=== PATIENT | female | born 1960 | race Caucasian/White ===

== ENCOUNTER 2017-03-06 09:45 | Emergency (ER) | payer OTHER ==
[~2017-03-06] VITALS: Ht 157.5 cm; Wt 70.0 kg
[2017-03-06 09:48] VITALS: BP 160/92; PULSE 92; RESP 14; TEMP 98.4; O2SAT 99
--- NOTE | 2017-03-06 10:12 | PD ---
HPI Chief Complaint: Oral / Dental Pain or Problem Time Seen by Provider: 10:10 Travel History International Travel<30 days: No Contact w/Intl Traveler<30days: No History of Present Illness HPI 56-year-old female presents the emergency department visiting from [place], arriving yesterday comes in with increasing pain and swelling to the left upper jaw and pain on the #14 tooth. Patient states she was chewing gum may have "hit the tooth wrong" 2 days ago. She now has increased pain and swelling. She denies fever, chills, difficulty swallowing or other symptoms. She is allergic to codeine and penicillin. Patient has been taking ibuprofen and Tylenol for the discomfort. Pain currently is about a 3 out of 10. PFSH Past Medical History ?: Not Past Surgical History Hysterectomy: Yes Social History Alcohol Use: Yes Tobacco Use: No Substance Use: No Allergies-Medications (Allergen,Severity, Reaction): Coded Allergies: Codeine (Verified Allergy, Severe, 03/06/17) Penicillin (Verified Allergy, Severe, 03/06/17) Review of Systems Except as stated in HPI: all other systems reviewed are Neg General / Constitutional: No: Fever Eyes: No: Visual changes HENT: Positive: Dental Difficulties, No: Headaches, Vertigo, Lightheadedness, Sore Throat, Rhinitis, Rhinorrhea, Congestion, Nosebleed, Neck Stiffness, Neck Pain, Ear Discharge, Earache Cardiovascular: No: Chest Pain or Discomfort Respiratory: No: Shortness of Breath Gastrointestinal: No: Abdominal Pain Genitourinary: No: Dysuria Musculoskeletal: No: Pain Skin: No Rash Neurologic: No: Weakness Psychiatric: No: Depression Endocrine: No: Polydipsia Hematologic/Lymphatic: No: Easy Bruising Physical Exam Narrative GENERAL: Patient appears no acute distress. SKIN: Warm and dry. Normal color. Normal turgor. HEAD: Atraumatic. Normocephalic. Patient is obvious swelling of the left upper cheek with loss of the buccal fold. Patient has palpable sore area over the 14 to this. EYES: Pupils equal and round. No scleral icterus. No injection or drainage. ENT: No nasal bleeding or discharge. Mucous membranes pink and moist. No obvious dental injury or drainage. Localized swelling of the base of the #14 tooth. Pharynx is clear. Airway is patent. Uvula is midline. NECK: Trachea midline. Supple nontender. CARDIOVASCULAR: Regular rate and rhythm. RESPIRATORY: No accessory muscle use. Clear to auscultation. Breath sounds equal bilaterally. GASTROINTESTINAL: Abdomen soft, non-tender, nondistended. Hepatic and splenic margins not palpable. MUSCULOSKELETAL: Extremities without clubbing, cyanosis, or edema. No obvious deformities. NEUROLOGICAL: Awake and alert. No obvious cranial nerve deficits. Motor grossly within normal limits. Five out of 5 muscle strength in the arms and legs. Normal speech. PSYCHIATRIC: Appropriate mood and affect; insight and judgment normal. Data Data Last Documented VS Vital Signs Date Time Temp Pulse Resp B/P Pulse Ox O2 Delivery O2 Flow Rate FiO2 03/06/17 09:48 98.4 92 14 160/92 99 Orders Clindamycin (Cleocin) (03/06/17 10:15) [facility] Medical Decision Making Medical Screen Exam Complete: Yes Emergency Medical Condition: Yes Differential Diagnosis Dental pain. Dental Caries. Dental abscess. Narrative Course Patient is medically stable at time of exam. Patient is given her first dose of clindamycin 300 mg by mouth now. Patient is continued on clindamycin 300 mg 4 times a day for 7 days. Patient is given a prescription for ibuprofen 600 mg 4 times a day #40. Patient is given a prescription for acetaminophen 500 mg 2 tabs every 6 hours when necessary #60. Patient is instructed to use warm compresses to the area frequently. Patient follow with her dentist upon returning to [place] or return to emergency Department with worsening symptoms as needed. Diagnosis Primary Impression: Dental abscess Referrals: Dentist Patient Instructions: Dental Abscess (ED), General Instructions Additional Instructions: Patient is given her first dose of clindamycin 300 mg by mouth now. Patient is continued on clindamycin 300 mg 4 times a day for 7 days. Patient is given a prescription for ibuprofen 600 mg 4 times a day #40. Patient is given a prescription for acetaminophen 500 mg 2 tabs every 6 hours when necessary #60. Patient is instructed to use warm compresses to the area frequently. Patient follow with her dentist upon returning to [place] or return to emergency Department with worsening symptoms as needed. Med/Other Pt SpecificInfo: Prescription(s) given Scripts Ibuprofen 600 Mg [id number] Mg PO Q6H PRN (Pain/Inflammation) #40 TAB Prov:Osmel Ca MD 03/06/17 Clindamycin 150 Mg [id number] Mg PO Q6H 7 Days Prov:Osmel Ca MD 03/06/17 Acetaminophen (Non-Aspirin Pain Relief ES)500 Mg Tab1,000 Mg PO Q6HR PRN (PAIN) #60 TAB Prov:Osmel Ca MD 03/06/17 Disposition: 01 DISCHARGE HOME Condition: Stable Tez Reeder Mar 06, 2017 10:12
[2017-03-06] MEDS ORDERED: NON-500T13 PO (10:14)
[2017-03-06] MEDS ORDERED: CLIN1CAP5 PO (10:14)
[2017-03-06] MEDS ORDERED: IBUP-232 PO (10:14)
[2017-03-06] MEDS ORDERED: CLINDAMYCIN 150 MG CAP PO ONE (10:15)
== END 2017-03-06 10:37 | disposition home or self-care (01) ==
LOC: NEPK 09:45
DX: K04.7 Periapical abscess without sinus (principal); Z88.0 Allergy status to penicillin
CPT/HCPCS: 99283